=== PATIENT | female | born 1985 | race Hispanic/Latino ===

== ENCOUNTER 2017-02-18 20:28 | Emergency (ER) | payer MEDICAID ==
[2017-02-18 21:24] VITALS: BP 128/77
--- NOTE | 2017-02-18 22:59 | Cat Scan Report ---
FINAL REPORT EXAM: CT HEAD/BRAIN WO CON HISTORY: headache x 1 week TECHNIQUE: CT head without contrast PRIORS: None. FINDINGS: No acute intra-axial or extra-axial hemorrhage is identified. There is no evidence of midline shift or mass effect. The ventricles and sulci are within normal limits. Mathew-white matter differentiation is intact. No acute parenchymal abnormalities seen. Bony calvarium is grossly intact. Visualized portions of the mastoids and paranasal sinuses are unremarkable. IMPRESSION: Negative CT head
== END 2017-02-18 21:30 | disposition left against medical advice (07) ==
LOC: ED 20:28
DX: R50.9 Fever, unspecified (principal); R51 Headache; Z53.21 Procedure and treatment not carried out due to patient leaving prior to being seen by health care provider
CPT/HCPCS: 70450

== ENCOUNTER 2017-05-23 10:30 | Inpatient (IN) | payer MEDICAID ==
--- NOTE | 2017-05-23 11:48 | Anesthesia Consultation ---
Anesthesia Consult and Med Hx Date of service: 05/25/17 - Airway Anesthetic Teeth Evaluation: Dentures ROM Head & Neck: Adequate Mental/Hyoid Distance: Adequate Mallampati Class: Class I Intubation Access Assessment: Good - Pulmonary Exam CTA: Yes - Cardiac Exam Cardiac Exam: RRR - Pre-Operative Health Status ASA Pre-Surgery Classification: ASA2 Proposed Anesthetic Plan: General Nerve Block: TAP block - Pulmonary Hx Smoking: Yes Hx Asthma: Yes (as a child, uses inhaler when gets resp infections) COPD: No Hx Pneumonia: No - Cardiovascular System Hx Hypertension: No - Central Nervous System Hx Seizures: No Hx Back Pain: Yes (Sciatica) Hx Psychiatric Problems: Yes (PTSD, anxiety,depression) - Endocrine Hx Renal Disease: No Hx End Stage Renal Disease: No Hx Hypothyroidism: No Hx Hyperthyroidism: No - Hematic Hx Anemia: Yes Hx Sickle Cell Disease: No - Other Systems Hx Alcohol Use: No Hx Cancer: No Hx Obesity: Yes - Additional Comments Anesthesia Medical History Comments: migraines. h/o PONV
[2017-05-23 16:45] LABS: Basophils % (Auto) 0.5 % (0.0-1.8); Eosinophils # (Auto) 0.2 K/mm3 (0.0-0.4); Hematocrit 42.6 % (30.3-42.9); Hemoglobin 14.3 gm/dl (10.1-14.3); Lymphocytes # (Auto) 1.8 K/mm3 (1.2-5.4); Lymphocytes % (Auto) 20.9 % (13.4-35.0); Mean Corpuscular HGB Conc 34 % (30-34); Mean Corpuscular Hemoglobin 30 pg (28-32); Mean Corpuscular Volume 88 fl (79-97); Monocytes # (Auto) 0.7 K/mm3 (0.0-0.8); Monocytes % (Auto) 8.2 % (0.0-7.3); Platelet Count 273 K/mm3 (140-440); Red Blood Count 4.83 M/mm3 (3.65-5.03); Red Cell Distribution Width 13.8 % (13.2-15.2)
--- NOTE | 2017-05-24 20:54 | History and Physical Report ---
History of Present Illness Date of examination: 05/23/17 Chief complaint: Pelvic Pain, Dyspareunia, Dysfunctional Uterine Bleeding History of present illness: The patient is a 31 year old female presents for definitive management of chronic pelvic pain, dyspareunia, and dysfunctional uterine bleeding after failed medical management. Past History Past Medical History: asthma, GERD, other (anxiety, depression) Past Surgical History: cholecystectomy, [employer]/uterine surgery (tubal ligation ), section (x 4: 2004, 2011, 2012, 2015) Family/Genetic History: heart disease, hypertension, cancer Social history: - Obstetrical History : 5 Medications and Allergies Allergies Allergy/AdvReac Type Severity Reaction Status Date / Time sulfamethoxazole Allergy Rash Verified 05/20/17 15:35 [From Bactrim] trimethoprim [From Bactrim] Allergy Rash Verified 05/20/17 15:35 Home Medications Medication Instructions Recorded Confirmed Last Taken Type Albuterol Sulfate [Ventolin Hfa] 2 puff IH PRN PRN 05/20/17 05/20/17 Unknown History Review of Systems All systems: negative - Vital Signs Vital signs: Vital Signs Temp Pulse Resp BP 98.2 F 80 18 104/78 05/23/17 11:20 05/23/17 11:20 05/23/17 11:20 05/23/17 11:20 Temp Pulse Resp BP Pulse Ox 98.2 F 80 18 104/78 05/23/17 11:20 05/23/17 11:20 05/23/17 11:20 05/23/17 11:20 - Physical Exam Breasts: Positive: deferred Cardiovascular: Regular rate Lungs: Positive: Clear to auscultation Abdomen: Positive: soft (obese) Uterus: Positive: normal size Extremities: Positive: normal Results Result Diagrams: 05/23/17 11:25 All other labs normal. Assessment and Plan A: Chronic Pelvic Pain Dyspareunia Dysfunctional Uterine Bleeding Previous x 4 GERD Asthma Anxiety Depression P: Proceed with total abdominal hysterectomy, bilateral salpingectomy, possible oophorectomy and other indicated procedures.
[2017-05-25] MEDS ORDERED: ANCEF/STERILE WATER 2 GM/20 ML 2 GM/20 ML SYRINGE IV SCH (05:00)
[2017-05-25] MEDS ORDERED: LACTATED RINGERS 1,000 ML IV SCH (05:00)
[2017-05-25] MEDS ORDERED: NACL BACTERIOSTATIC INFILTRATI ONE (06:16)
[2017-05-25] MEDS ORDERED: SUBLIMAZE IV NR (07:02)
[2017-05-25] MEDS ORDERED: XYLOCAINE MPF 2% ONE (07:07)
[2017-05-25] MEDS ORDERED: SUBLIMAZE ONE (07:08)
[2017-05-25] MEDS ORDERED: DIPRIVAN 10 MG/ML IV ONE (07:08)
[2017-05-25] MEDS ORDERED: METHYLENE BLUE ONE (07:15)
[2017-05-25] MEDS ORDERED: XYLOCAINE 1% 20 mL INFILTRATI NR (07:15)
[2017-05-25] MEDS ORDERED: ZEMURON IV ONE ×2 (07:16→09:15)
[2017-05-25] MEDS ORDERED: ZOFRAN ONE (07:16)
[2017-05-25 07:26] LABS: Alanine Aminotransferase 17 units/L (7-56); Albumin 3.7 g/dL (3.9-5); BUN/Creatinine Ratio 26; Blood Urea Nitrogen 13 mg/dL (7-17); Calcium 8.4 mg/dL (8.4-10.2); Hemolysis Index 8
[2017-05-25] MEDS ORDERED: ACD-A 500 ML IV ONE (07:27)
--- NOTE | 2017-05-25 07:54 | Anesthesia Day of Surgery ---
Anesthesia Day of Surgery - Day of Surgery Patient Examined: Yes Patient H&P Reviewed: Yes Patient is NPO: Yes
[2017-05-25] MEDS ORDERED: MARCAINE 0.5% INFILTRATI NR (08:00)
[2017-05-25] MEDS ORDERED: VERSED IV NR (08:00)
[2017-05-25] MEDS ORDERED: NACL P/F VIAL (10 ML) INFILTRATI NR (08:00)
[2017-05-25] MEDS ORDERED: LACTATED RINGERS 1,000 ML ONE (08:20)
[2017-05-25] MEDS ORDERED: ZOFRAN IV PRN ×2 (08:30→11:53)
[2017-05-25] MEDS ORDERED: DECADRON ONE (09:15)
[2017-05-25] MEDS ORDERED: NACL 0.9% IR ONE (10:01)
[2017-05-25] MEDS ORDERED: ROBINUL ONE (10:05)
[2017-05-25] MEDS ORDERED: NEOSTIGMINE ONE (10:05)
--- NOTE | 2017-05-25 10:34 | Operative Report ---
Operative Report Operative Report: Preoperative diagnosis: 1) Pelvic Pain 2) Dyspareunia 3) Dysfunctional Uterine Bleeding 4) Previous x 4 Postoperative diagnosis: Same Procedure: Total Abdominal Hysterectomy, Bilateral Salpingectomy Surgeon: Kat Childress MD Test Desk Operator: Sharda Swan MD Anesthesia:GETA Findings: 1) Small anteverted mobile uterus 2) Normal appearing ovaries and fallopian tubes. Previous bilateral tubal ligation 3) Bladder densely adherent to the cervix EBL: 200 mL IVF: 1700 mL Urine output: 150 mL, clear at the end of the procedure Drains: Hughes to gravity Specimen: Uterus, cervix, bilateral fallopian tubes to pathology Complications: None. Counts correct x 2. Disposition: Stable to PACU Indication for procedure: Pt is a 31 year old female presents for definitive management of chronic pelvic pain, dyspareunia, and dysfunctional uterine bleeding after failed medical management. Operation in detail: After the risks, benefits, alternatives and complications were explained to the patient she gave informed consent for the procedure. She was subsequently taken to the operating room with her IV noted to be running well and placed in the dorsal supine position. SCDs were noted to be in place and functioning. General endotracheal anesthesia was induced without difficulty. She was then placed in the dorsal supine position and prepped and draped in a normal sterile fashion. A hughes catheter was inserted and the bladder was emptied. A timeout was performed. A Pfannenstiel skin incision was made with the knife and carried down to the fascia with the Bovie. The fascia was then incised in the midline with the Bovie , and the fascial incision was extended with the Bovie. The anterior edge was then grasped with two Kochers, tented up and dissected off the rectus muscles. The posterior edge was then grasped with two Kochers, tented up, and dissected off the rectus muscles. The rectus muscles were then blunty. The peritoneum was entered sharply between two Ladi clamps. The peritoneal incision was then stretched with good visualization of the bladder. Intraabdominal survery was completed and noted as above. An O'Germán-O'Vega was placed and the bowel was packed away with moist tagged laps. The uterus was delivered through the incision and grasped at each cornua with Ladi clamps. The right round ligament was clamped with a Atul, suture ligated with 0- Vicryl and transected with the Bovie. The anterior leaf of the broad ligament was dissected to the midline of the vesico-uterine peritoneum. An avascular window was created, and the right utero-ovarian ligament and fallopian tube were clamped, cut and suture ligated with 0-Vicryl. The left round ligament was grasped with a Atul, suture ligated and transected. The fallopian tube and utero-ovarian ligaments were also doubly clamped, cut and suture ligated with 0 Vicryl. The anterior leaf of the broad ligament on the left side was also dissected to the midline of the vesico-uterine peritoneum. A moist sponge stick and a combination of sharp dissection and Bovie cautery was used to move the bladder inferiorly off of the cervix. Next, both uterine arteries were doubly clamped, cut and suture ligated with 0-Vicryl. The cardinal ligaments and utero- sacral ligaments were then sequentially clamped, cut and suture ligated with 0- Vicryl. Sharply curved Zeppelin clamps were then placed at the angles of the vagina. The uterus and cervix were then excised and sent to pathology. Rico stitches of 0 Vicryl were then used to reapproximate the vaginal angles. The remainder of the vaginal cuff was then reapproximated with figure of eights of 0 -Vicryl. Hemostasis was noted. The fallopian tubes were then clamped, cut and suture ligated with 0 Vicryl bilaterally and sent to pathology. Hemostasis was noted. The abdomen was then irrigated and all pedicles were noted to be hemostatic. Elias AH was then sprinkled over the pedicles. Next, all retractors, laps and instruments were removed from the peritoneal cavity. The peritoneum and rectus muscles were reapproximated with 0-Vicryl in a running fashion. The fascia were reapproximated with 0 Vicryl in a running fashion. The subcutaneous tissue is reapproximated with 2-0 Vicryl in a running fashion. The skin was reapproximated with 4-0 Vicryl in a subcuticular fashion. The incision was then covered with steristrips and a pressure dressing. The procedure was then ended. The pt was then extubated without difficulty and taken to the PACU in stable condition. All instrument, lap and needle counts were correct x 2.
--- NOTE | 2017-05-25 10:34 | Post Operative Note ---
Pre-op diagnosis: 1) Pelvic Pain 2) Dyspareunia 3) Dysfunctional Uterine Bleeding Post-op diagnosis: same Findings: 1) Small anteverted mobile uterus 2) Normal appearing ovaries and fallopian tubes. Previous bilateral tubal ligation 3) Bladder densely adherent to the cervix Procedure: Total abdominal hysterectomy, bilateral salpingectomy Anesthesia: GETA Surgeon: DEBBIE GIRON Area Field Manager: PHIL TONG Estimated blood loss: other (200 mL) Pathology: list (uterus, cervix, fallopian tubes) Specimen disposition: to lab Condition: stable Disposition: PACU
[2017-05-25] MEDS: DILAUDID IV PRN ×4 (10:40→11:10)
[2017-05-25] MEDS: VERSED IV PRN ×2 (10:47→11:00)
[2017-05-25] MEDS ORDERED: MORPHINE PCA 30MG/30ML IV ONE (10:54)
--- NOTE | 2017-05-25 11:14 | Post Anesthesia Evaluation ---
- Post Anesthesia Evaluation Patient Participated: Yes Airway Patent: Yes Stable Respiratory Function: Yes Temp > 96.8F: Yes Pain Manageable: Yes Adequeate Hydration: Yes Anesthesia Complications: No
[2017-05-25] MEDS ORDERED: DEMEROL IV PRN (11:30)
[2017-05-25] MEDS ORDERED: MORPHINE PCA 30MG/30ML IV SCH (11:53)
[2017-05-25] MEDS ORDERED: ANCEF/NS 1 GM/50 ML 1 GM/50 ML BAG IV SCH (11:53)
[2017-05-25] MEDS ORDERED: NARCAN 0.4 MG/1 ML IV PRN ×3 (11:53→18:13)
[2017-05-25] MEDS ORDERED: MORPHINE IV PRN (11:53)
[2017-05-25] MEDS ORDERED: D5W/0.45% NACL/KCL 20 MEQ 20 MEQ/1,000 ML BAG IV SCH (11:53)
[2017-05-25] MEDS: TORADOL IV SCH ×2 (12:26→18:03)
[2017-05-25] MEDS ORDERED: DILAUDID PCA 6MG/30ML IV SCH (19:00)
[2017-05-25] MEDS ORDERED: DILAUDID IV ONE (19:00)
[2017-05-25] MEDS: ZOFRAN IV PRN (19:01)
[2017-05-25] MEDS: XANAX PO PRN (19:05)
[2017-05-25] MEDS: ceFAZolin 1 GM in NACL 0.9% 20 ML IV SCH (21:45)
[2017-05-25] MEDS: COLACE PO SCH (22:01)
[2017-05-26] MEDS: TORADOL IV SCH ×4 (00:37→18:07)
[2017-05-26] MEDS: ceFAZolin 1 GM in NACL 0.9% 20 ML IV SCH (05:43)
[2017-05-26 06:44] LABS: Hematocrit 36.1 % (30.3-42.9); Hemoglobin 12.2 gm/dl (10.1-14.3)
[2017-05-26 07:00] LABS: BUN/Creatinine Ratio 12; Blood Urea Nitrogen 7 mg/dL (7-17); Calcium 8.4 mg/dL (8.4-10.2); Hemolysis Index 3
[2017-05-26] MEDS ORDERED: DILAUDID PO PRN (08:43)
--- NOTE | 2017-05-26 08:47 | Progress Note ---
Assessment and Plan A: POD#1 s/p PRIYANKA/Bilateral salpingectomy P: Routine post op care. Discontinue HOP SEPARATOR. PO Dilaudid for pain. Subjective - Subjective Date of service: 05/26/17 Principal diagnosis: s/p PRIYANKA/Bilateral salpingectomy Interval history: Poor pain control initially. Pt crying and anxious this morning. Passing small amount of flatus. Voiding. Patient reports: voiding normally, flatus, pain poorly controlled, no bowel movement, no ambulating normally (SCDs in place ) Objective - Vital Signs Latest vital signs: Vital Signs Temp Pulse Resp BP BP Pulse Ox 05/26/17 06:48 20 05/26/17 05:02 98.4 F 77 20 98/61 99 05/26/17 03:28 20 05/26/17 01:28 20 05/26/17 00:39 20 100 05/26/17 00:37 20 05/25/17 23:28 20 05/25/17 23:18 98.7 F 65 20 117/77 96 05/25/17 21:28 20 05/25/17 20:17 97.9 F 72 20 106/73 97 05/25/17 17:08 98 H 100 05/25/17 17:00 97.4 F L 101 H 18 140/83 99 05/25/17 12:55 20 05/25/17 12:45 97.5 F L 69 20 148/74 100 05/25/17 12:26 14 05/25/17 12:25 97.7 F 70 16 130/80 99 05/25/17 12:10 69 14 135/78 98 05/25/17 11:55 69 15 139/84 97 05/25/17 11:40 68 15 132/76 98 05/25/17 11:30 14 05/25/17 11:25 97.7 F 69 14 133/77 99 05/25/17 11:20 14 05/25/17 11:10 72 14 133/97 100 05/25/17 11:00 14 05/25/17 10:55 70 14 136/77 100 05/25/17 10:50 14 05/25/17 10:40 69 14 129/82 100 05/25/17 10:35 69 16 126/70 100 05/25/17 10:30 67 17 105/61 100 05/25/17 10:24 97.8 F 65 16 111/48 100 Intake and Output 05/25/17 05/26/17 05/26/17 22:59 06:59 14:59 Intake Total 480 700 Output Total 1200 1350 Balance -720 -650 Intake: Oral 480 700 Output: Urine 1200 1350 Indwelling Catheter 1200 1350 Other: Total, Intake Amount 480 700 Total, Output Amount 200 1350 Voiding Method Indwelling Catheter # Voids Indwelling Catheter 1,000 # Bowel Movements 0 Weight 89.358 kg - Exam Breasts: Present: deferred Cardiovascular: Present: Regular rate Lungs: Present: Clear to auscultation Abdomen: Present: soft, abnormal bowel sounds (hypoactive ) Extremities: Present: normal (SCDs in place ) Incision: Present: dressed - Labs Labs: Abnormal lab results 05/26/17 Range/Units 05:51 Creatinine 0.6 L (0.7-1.2) mg/dL Glucose 125 H (65-100) mg/dL
[2017-05-26] MEDS ORDERED: DILAUDID IV PRN (08:55)
[2017-05-26] MEDS: PROTONIX IV SCH (10:19)
[2017-05-26] MEDS: COLACE PO SCH ×2 (10:21→21:56)
[2017-05-26] MEDS: MILK OF MAGNESIA PO SCH ×3 (11:00→20:35)
[2017-05-26] MEDS: PERCOCET 5/325 PO PRN ×4 (11:36→23:47)
[2017-05-26] MEDS: XANAX PO PRN ×2 (12:40→20:46)
[2017-05-27] MEDS: PERCOCET 5/325 PO PRN ×4 (03:47→20:55)
[2017-05-27] MEDS: MILK OF MAGNESIA PO SCH ×5 (03:49→23:00)
[2017-05-27] MEDS: TORADOL IV SCH ×3 (06:33→21:01)
[2017-05-27] MEDS: ZOFRAN IV PRN ×2 (07:46→21:03)
--- NOTE | 2017-05-27 09:38 | Progress Note ---
Assessment and Plan A: POD#2 s/p PRIYANKA/Bilateral salpingectomy P: Routine post op care. Continue bowel regimen. Anticipate discharge tomorrow. Subjective - Subjective Date of service: 05/27/17 Principal diagnosis: s/p PRIYANKA/Bilateral salpingectomy Interval history: Pt reports eating too much last night and feeling nauseated afterwards. She has some nausea today but no emesis. She is upset because some of her family that was supposed to help her after this surgery are unable to come. Patient reports: appetite normal, voiding normally, pain well controlled, flatus , ambulating normally, nauseated, no bowel movement Objective - Vital Signs Latest vital signs: Vital Signs Temp Pulse Resp BP BP Pulse Ox 05/27/17 04:47 18 05/27/17 04:10 98.2 F 84 20 97/66 05/27/17 03:47 20 05/27/17 00:47 18 05/27/17 00:00 98.2 F 84 20 148/78 05/26/17 23:47 20 05/26/17 20:35 20 05/26/17 20:10 98.3 F 71 18 116/72 05/26/17 15:42 98.4 F 75 20 101/54 97 05/26/17 10:20 16 Intake and Output 05/26/17 05/27/17 05/27/17 22:59 06:59 14:59 Intake Total 960 240 Output Total 800 Balance 160 240 Intake: Oral 960 240 Output: Urine 800 Void 600 Other: Total, Intake Amount 240 240 Total, Output Amount 200 Voiding Method Toilet # Voids Void 1 1 - Exam Breasts: Present: deferred Cardiovascular: Present: Regular rate Lungs: Present: Clear to auscultation Abdomen: Present: soft Extremities: Present: normal Incision: Present: dressed
[2017-05-27] MEDS: COLACE PO SCH (10:05)
[2017-05-27] MEDS: PROTONIX IV SCH (10:05)
[2017-05-27] MEDS: XANAX PO PRN (15:34)
[2017-05-27] MEDS ORDERED: TUCKS PAD TP PRN (17:43)
[2017-05-28] MEDS: PERCOCET 5/325 PO PRN ×2 (05:30→12:49)
[2017-05-28] MEDS: COLACE PO SCH ×2 (07:31→10:22)
[2017-05-28] MEDS: MILK OF MAGNESIA PO SCH (07:31)
[2017-05-28] MEDS: TORADOL IV SCH (10:21)
[2017-05-28] MEDS: PROTONIX IV SCH (10:22)
--- NOTE | 2017-05-28 12:12 | Progress Note ---
Assessment and Plan - Patient Problems (1) Status post abdominal hysterectomy Current Visit: Yes Status: Acute Plan to address problem: Patient is currently doing well Discharge home Subjective - Subjective Date of service: 05/28/17 Principal diagnosis: s/p PRIYANKA/Bilateral salpingectomy Interval history: patient without any significant complaints. Tolerating regular diet without complication. Pain is better controlled Patient reports: appetite normal, voiding normally, pain well controlled Objective - Vital Signs Latest vital signs: Vital Signs Temp Pulse Resp BP Pulse Ox 05/28/17 08:18 98.4 F 76 18 124/74 96 05/28/17 05:01 97.9 F 74 20 102/70 99 05/28/17 01:13 97.7 F 73 20 105/57 100 05/27/17 21:28 98.2 F 86 20 121/68 97 05/27/17 16:13 97.9 F 77 18 110/71 99 05/27/17 12:24 97.5 F L 86 20 108/69 96 Intake and Output 05/27/17 05/28/17 05/28/17 22:59 06:59 14:59 Intake Total 240 120 Balance 240 120 Intake: Oral 120 120 Intake, Free Water 120 Other: Total, Intake Amount 120 120 # Voids Void 1 1 # Bowel Movements 1 - Exam Abdomen: Present: normal appearance Incision: Present: normal
--- NOTE | 2017-05-28 12:14 | Discharge Summary ---
Providers - Providers Date of Admission: 05/25/17 05:46 Date of discharge: 05/28/17 Attending physician: DEBBIE CHILDRESS Primary care physician: MIKKI LY Hospitalization Reason for admission: other (chronic pelvic pain) Procedure: other (total abdominal hysterectomy) Incision: normal Discharge diagnosis: other (chronic pelvic pain) Hospital course: Patient was admitted the day of surgery and underwent a total abdominal hysterectomy. Please see operative note for details of surgery. Postoperative course was uneventful. Condition at discharge: Good Disposition: DC-[id number] TO HOME OR SELFCARE - Discharge Diagnoses (1) Status post abdominal hysterectomy Status: Acute Plan - Discharge Medications Prescriptions: ALPRAZolam [Xanax] 1 mg PO Q8H PRN #20 tablet PRN Reason: Anxiety Docusate Sodium [Colace] 100 mg PO BID PRN #60 capsule PRN Reason: Constipation Ibuprofen [Motrin] 800 mg PO Q8HR PRN #30 tablet PRN Reason: Pain Omeprazole 20 mg PO DAILY #30 tablet. oxyCODONE /ACETAMINOPHEN [Percocet 5/325] 1 tab PO Q6HR PRN #40 tablet PRN Reason: Pain - Provider Discharge Summary Activity: no sex for 6 weeks, no heavy lifting 4 weeks, no strenuous exercise Diet: routine Instructions: routine Additional instructions: [] Smoking cessation referral if applicable(refer to patient education folder for contact #) [] Refer to [facility] Booklet Call your doctor immediately for: * Fever > 100.5 * Heavy vaginal bleeding ( >1 pad per hour) * Severe persistent headache * Shortness of breath * Reddened, hot, painful area to leg or breast * Drainage or odor from incision. * Keep incision clean and dry at all times and follow doctor's instructions regarding bathing/showering Scheduled follow-up postoperative appointment with Dr. Childress in 2 weeks - Follow up plan
[2017-05-28 12:47] VITALS: BP 121/80
[2017-05-29] MEDS ORDERED: PROTONIX PO SCH (10:00)
== END 2017-05-28 13:35 | disposition home or self-care (01) | DRG 743 ==
LOC: 3A 05-25 05:46 → OB 05-25 11:03
PROVIDERS: ADMIT Obstetrics & Gynecology; ATTEND Obstetrics & Gynecology
PROC: 0UT90ZZ Resection of Uterus, Open Approach (ICD-10-PCS; principal; 2017-05-25)
PROC: 0UB70ZZ Excision of Bilateral Fallopian Tubes, Open Approach (ICD-10-PCS; 2017-05-25)
DX: N93.8 Other specified abnormal uterine and vaginal bleeding (principal); J45.909 Unspecified asthma, uncomplicated; K21.9 Gastro-esophageal reflux disease without esophagitis; F41.9 Anxiety disorder, unspecified; N94.10 Unspecified dyspareunia; F32.9 Major depressive disorder, single episode, unspecified; E66.9 Obesity, unspecified; Z90.49 Acquired absence of other specified parts of digestive tract; Z98.51 Tubal ligation status; Z88.2 Allergy status to sulfonamides; Z68.32 Body mass index [BMI] 32.0-32.9, adult
CPT/HCPCS: 36415; 64450; 80048; 80053; 84703; 85014; 85018; 85025; 86850; 86900; 86901; 88302; 88307; C9113; J0690; J1100; J1170; J1885; J2250; J2270; J2405; J2704; J2710; J3010; J7120; Q9968

== ENCOUNTER 2018-08-07 15:03 | Emergency (ER) | payer MEDICAID ==
--- NOTE | 2018-08-07 15:46 | Emergency Department Report ---
Blank Doc - Documentation Documentation: This is a 33-year-old female that presents with dizziness and headache. Stated had a near syncope episode. Also has fatigue. This initial assessment/diagnostic orders/clinical plan/treatment(s) is/are subject to change based on patient's health status, clinical progression and re- assessment by fellow clinical providers in the ED. Further treatment and workup at subsequent clinical providers discretion. Patient/guardians urged not to elope from the ED as their condition may be serious if not clinically assessed and managed. Initial orders include: 1- Patient sent to [facility] for further evaluation and treatment 2- labs 3- CT head 4- UA
[2018-08-07 15:48] VITALS: BP 137/82
[2018-08-07 16:12] LABS: Basophils # (Auto) 0.1 K/mm3 (0.0-0.1); Basophils % (Auto) 1.1 % (0.0-1.8); Eosinophils # (Auto) 0.2 K/mm3 (0.0-0.4); Eosinophils % (Auto) 1.9 % (0.0-4.3); Hematocrit 43.2 % (30.3-42.9); Lymphocytes # (Auto) 2.2 K/mm3 (1.2-5.4); Lymphocytes % (Auto) 20.8 % (13.4-35.0); Mean Corpuscular HGB Conc 35 % (30-34); Mean Corpuscular Volume 89 fl (79-97); Monocytes # (Auto) 0.7 K/mm3 (0.0-0.8); Monocytes % (Auto) 6.8 % (0.0-7.3); Platelet Count 277 K/mm3 (140-440); Red Blood Count 4.88 M/mm3 (3.65-5.03); Red Cell Distribution Width 13.3 % (13.2-15.2)
[2018-08-07 16:28] LABS: Amorphous Crystals,Urine Few; Bilirubin,Urine NEG (Negative); Blood,Urine NEG (Negative); Color,Urine Yellow (Yellow); Mucus,Urine 3+ /HPF; Protein,Urine <15 mg/dL mg/dL (Negative); WBC,Urine < 1.0 /HPF (0.0-6.0)
[2018-08-07 17:10] LABS: Alanine Aminotransferase 27 units/L (7-56); Albumin 4.4 g/dL (3.9-5); BUN/Creatinine Ratio 20; Blood Urea Nitrogen 16 mg/dL (7-17); Calcium 9.2 mg/dL (8.4-10.2); Hemolysis Index 16
[2018-08-07] MEDS ORDERED: TYLENOL PO ONE (19:20)
[2018-08-07] MEDS ORDERED: REGLAN PO ONE (19:20)
[2018-08-07] MEDS ORDERED: BENADRYL PO ONE (19:20)
[2018-08-07] MEDS ORDERED: DECADRON IM ONE (19:20)
--- NOTE | 2018-08-07 19:58 | Emergency Department Report ---
ED General Adult HPI - General Chief complaint: Dizziness Stated complaint: DIZZY/PASSED OUT Time Seen by Provider: 08/07/18 15:45 Source: patient Mode of arrival: Ambulatory Limitations: No Limitations - History of Present Illness Initial comments: This is a 33-year-old female that presents with dizziness and headache. Stated had a near syncope episode. Also has fatigue. pt has hx of migraine headache which preceded this event, right frontal headache 7/10 sharp this is usual location and intensity of other headache, there is no fever no chillls no n/v no neck pain, no ear or throat pain , symptoms are improved at this time , pt is ambulatory to baseline per patient there is no dizziness no cp no n/v. no photophobia Onset/Timin -: days(s) Location: head Radiation: non-radiation Severity scale (0 -10): 4 Quality: sharp Consistency: constant Improves with: rest Worsens with: movement Associated Symptoms: headaches Treatments Prior to Arrival: none - Related Data Home Medications Medication Instructions Recorded Confirmed Last Taken Albuterol Sulfate [Ventolin Hfa] 2 puff IH PRN PRN 05/20/17 05/20/17 Unknown Previous Rx's Medication Instructions Recorded Last Taken Type ALPRAZolam [Xanax] 1 mg PO Q8H PRN #20 tablet 05/27/17 Unknown Rx Docusate Sodium [Colace] 100 mg PO BID PRN #60 capsule 05/27/17 Unknown Rx Ibuprofen [Motrin] 800 mg PO Q8HR PRN #30 tablet 05/27/17 Unknown Rx Omeprazole 20 mg PO DAILY #30 tablet. 05/27/17 Unknown Rx oxyCODONE /ACETAMINOPHEN [Percocet 1 tab PO Q6HR PRN #40 tablet 05/27/17 Unknown Rx 5/325] Acetaminophen [Acetaminophen TAB] 1,000 mg PO Q6HR PRN #30 tablet 08/08/18 Unknown Rx Metoclopramide [Reglan] 10 mg PO Q6H PRN #30 tablet 08/08/18 Unknown Rx diphenhydrAMINE [Benadryl CAP] 25 mg PO Q6HR PRN #30 capsule 08/08/18 Unknown Rx Allergies Allergy/AdvReac Type Severity Reaction Status Date / Time sulfamethoxazole Allergy Rash Verified 05/20/17 15:35 [From Bactrim] trimethoprim [From Bactrim] Allergy Rash Verified 05/20/17 15:35 ED Review of Systems ROS: Stated complaint: DIZZY/PASSED OUT Other details as noted in HPI Constitutional: malaise. denies: chills, fever Eyes: denies: eye pain, eye discharge, vision change ENT: denies: ear pain, throat pain Respiratory: denies: cough, shortness of breath, wheezing Cardiovascular: denies: chest pain, palpitations Endocrine: no symptoms reported Gastrointestinal: denies: abdominal pain, nausea, vomiting, diarrhea Genitourinary: as per HPI Musculoskeletal: denies: back pain, joint swelling, arthralgia Skin: denies: rash, lesions Neurological: headache. denies: weakness, numbness, paresthesias, confusion, abnormal gait, vertigo Psychiatric: denies: anxiety, depression Hematological/Lymphatic: denies: easy bleeding, easy bruising ED Past Medical Hx - Past Medical History Previous Medical History?: Yes Hx Hypertension: No Hx Congestive Heart Failure: No Hx Diabetes: No Hx Deep Vein Thrombosis: No Hx Renal Disease: No Hx Sickle Cell Disease: No Hx Headaches / Migraines: Yes (migraines) Hx Seizures: No Hx Asthma: Yes Hx COPD: No Hx HIV: No - Surgical History Hx Cholecystectomy: Yes Additional Surgical History: x 3. tubal ligation - Social History Smoking Status: Current Every Day Smoker Substance Use Type: None - Medications Home Medications: Home Medications Medication Instructions Recorded Confirmed Last Taken Type Albuterol Sulfate [Ventolin Hfa] 2 puff IH PRN PRN 05/20/17 05/20/17 Unknown History ALPRAZolam [Xanax] 1 mg PO Q8H PRN #20 tablet 05/27/17 Unknown Rx Docusate Sodium [Colace] 100 mg PO BID PRN #60 capsule 05/27/17 Unknown Rx Ibuprofen [Motrin] 800 mg PO Q8HR PRN #30 tablet 05/27/17 Unknown Rx Omeprazole 20 mg PO DAILY #30 tablet. 05/27/17 Unknown Rx oxyCODONE /ACETAMINOPHEN [Percocet 1 tab PO Q6HR PRN #40 tablet 05/27/17 Unknown Rx 5/325] Acetaminophen [Acetaminophen TAB] 1,000 mg PO Q6HR PRN #30 tablet 08/08/18 Unknown Rx Metoclopramide [Reglan] 10 mg PO Q6H PRN #30 tablet 08/08/18 Unknown Rx diphenhydrAMINE [Benadryl CAP] 25 mg PO Q6HR PRN #30 capsule 08/08/18 Unknown Rx ED Physical Exam - General Limitations: No Limitations General appearance: alert, in no apparent distress - Head Head exam: Present: atraumatic, normocephalic - Eye Eye exam: Present: normal appearance, EOMI. Absent: conjunctival injection, nystagmus Pupils: Present: normal accommodation - ENT ENT exam: Present: normal orophraynx, mucous membranes moist, TM's normal bilaterally, normal external ear exam - Neck Neck exam: Present: normal inspection, full ROM. Absent: tenderness, meningismus, lymphadenopathy, thyromegaly - Expanded Neck Exam Expanded Neck exam: Absent: midline deformity, anterior neck swelling, thyroid mass, carotid bruit, tracheal deviation - Respiratory Respiratory exam: Present: normal lung sounds bilaterally. Absent: respiratory distress, wheezes, stridor, chest wall tenderness - Cardiovascular Cardiovascular Exam: Present: regular rate, normal rhythm, normal heart sounds. Absent: systolic murmur, diastolic murmur, rubs, gallop - GI/Abdominal GI/Abdominal exam: Present: soft, normal bowel sounds. Absent: distended, tenderness, bruit, hernia - Rectal Rectal exam: Present: deferred - Extremities Exam Extremities exam: Present: normal inspection, full ROM, normal capillary refill. Absent: tenderness, pedal edema, joint swelling, calf tenderness - Back Exam Back exam: Present: normal inspection, full ROM. Absent: tenderness, CVA tenderness (R), CVA tenderness (L), muscle spasm, paraspinal tenderness, rash noted - Neurological Exam Neurological exam: Present: alert, oriented X3, CN II-XII intact, normal gait, reflexes normal. Absent: motor sensory deficit - Expanded Neurological Exam Expanded Patient oriented to: Present: person, place, time Speech: Present: fluid speech Cranial nerves: EOM's Intact: Normal, Gag Reflex: Normal, Tongue Deviation: Normal, Nystagmus: Normal, Facial Sensation: Normal Cerebellar function: Finger to Nose: Normal, Heel to [place]: Normal, Romberg: Normal Upper motor neuron: Haroon Neglect: Normal, Pronator Drift: Normal, Babinski Sign: Normal, Sensory Extinction: Normal Motor strength exam: RUE: 5, LUE: 5, RLE: 5, LLE: 5 DTR: bicep (R): 2+, bicep (L): 2+, ankle (R): 2+, ankle (L): 2+ Best Eye Response ([place]): (4) open spontaneously Best Motor Response ([place]): (6) obeys commands Best Verbal Response ([place]): (5) oriented [place] Total: 15 - Psychiatric Psychiatric exam: Present: normal affect, normal mood - Skin Skin exam: Present: warm, dry, intact, normal color. Absent: rash ED Course Vital Signs 08/07/18 15:44 Temperature 98.2 F Pulse Rate 80 Respiratory 18 Rate Blood Pressure 137/82 O2 Sat by Pulse 96 Oximetry ED Medical Decision Making - Lab Data Result diagrams: 08/07/18 15:49 08/07/18 15:49 Labs 08/07/18 08/07/18 08/07/18 15:49 15:49 15:49 WBC 10.7 RBC 4.88 Hgb 15.0 H Hct 43.2 H MCV 89 MCH 31 MCHC 35 H RDW 13.3 Plt Count 277 Lymph % (Auto) 20.8 Gregory % (Auto) 6.8 Eos % (Auto) 1.9 Baso % (Auto) 1.1 Lymph # 2.2 Gregory # 0.7 Eos # 0.2 Baso # 0.1 Seg Neutrophils % 69.4 Seg Neutrophils # 7.4 Sodium 140 Potassium 4.4 Chloride 105.0 Carbon Dioxide 20 L Anion Gap 19 BUN 16 Creatinine 0.8 Estimated GFR > 60 BUN/Creatinine Ratio 20 Glucose 105 H Calcium 9.2 Total Bilirubin 0.30 AST 18 ALT 27 Alkaline Phosphatase 73 Total Protein 7.7 Albumin 4.4 Albumin/Globulin Ratio 1.3 HCG, Qual Negative Urine Color Urine Turbidity Urine pH Ur Specific [place] Urine Protein Urine Glucose (UA) Urine Ketones Urine Blood Urine Nitrite Urine Bilirubin Urine Urobilinogen Ur Leukocyte Esterase Urine WBC (Auto) Urine RBC (Auto) U Epithel Cells (Auto) Amorphous Crystals Urine Mucus 08/07/18 Unknown WBC RBC Hgb Hct MCV MCH MCHC RDW Plt Count Lymph % (Auto) Gregory % (Auto) Eos % (Auto) Baso % (Auto) Lymph # Gregory # Eos # Baso # Seg Neutrophils % Seg Neutrophils # Sodium Potassium Chloride Carbon Dioxide Anion Gap BUN Creatinine Estimated GFR BUN/Creatinine Ratio Glucose Calcium Total Bilirubin AST ALT Alkaline Phosphatase Total Protein Albumin Albumin/Globulin Ratio HCG, Qual Urine Color Yellow Urine Turbidity Cloudy Urine pH 6.0 Ur Specific [place] 1.028 Urine Protein <15 mg/dl Urine Glucose (UA) Neg Urine Ketones Tr Urine Blood Neg Urine Nitrite Neg Urine Bilirubin Neg Urine Urobilinogen 2.0 Ur Leukocyte Esterase Neg Urine WBC (Auto) < 1.0 Urine RBC (Auto) 10.0 U Epithel Cells (Auto) 6.0 Amorphous Crystals Few Urine Mucus 3+ - EKG Data EKG shows normal: sinus rhythm, axis, intervals, QRS complexes, ST-T waves Rate: bradycardia - EKG Data Interpretation: normal EKG (ekg interp by ed attending NS Bradycardia hr 56, No ST Elevated NE ) - Radiology Data Radiology results: report reviewed, image reviewed Ordering Physician: GRETEL MATIAS NP Date of Service: 08/07/18 Procedure(s): CT head/brain wo con Accession Number(s): [id number] cc: GRETEL MATIAS NP CT HEAD WITHOUT CONTRAST INDICATION / CLINICAL INFORMATION: Lightheadedness/Dizziness. TECHNIQUE: All CT scans at this location are performed using CT dose reduction for ALARA by means of automated exposure control. COMPARISON: None available. FINDINGS: HEMORRHAGE: No evidence of intracranial hemorrhage or extra-axial fluid collection. EXTRA-AXIAL SPACES: Cortical sulci, sylvian fissures and basilar cisterns have an unremarkable appearance. VENTRICULAR SYSTEM: The ventricular system is of normal size and configuration. CEREBRAL PARENCHYMA: No areas of abnormal brain parenchymal attenuation are identified. There is no indication of recent infarction. MIDLINE SHIFT OR HERNIATION: There is no mass effect. CEREBELLUM / BRAINSTEM: Brainstem and cerebellum have an unremarkable appearance. INTRACRANIAL VESSELS:No abnormalities are identified on this noncontrast head CT. ORBITS: visualized portions of the orbits have an unremarkable appearance. SOFT TISSUES of HEAD: No significant abnormality. CALVARIUM: Evaluation of bone windows reveals no abnormalities. PARANASAL SINUSES / MASTOID AIR CELLS: Paranasal sinuses are free from sig nificant inflammatory mucosal disease. Mastoid air cells are normally pneumatized. IMPRESSION: 1. No acute intracranial abnormality. Signer Name: Shine Liu MD Signed: 08/07/2018 9:02 PM Workstation Name: [id number] Transcribed By: REF Dictated By: SANFORD CARLOS MD Electronically Authenticated By: SANFORD CARLOS MD Signed Date/Time: 08/07/182101 DD/ 58 TD/TT: - Medical Decision Making Headache is resolved to 02/16 CT scan is normal no bleed no mass no abnormality plan DC to home with Benadryl Reglan Tylenol when necessary headache patient referral to neurology and PCP patient will follow up with same in 2-3 days will return immediately should symptoms worsen patient DC'd home in stable condition at this time Critical care attestation.: If time is entered above; I have spent that time in minutes in the direct care of this critically ill patient, excluding procedure time. ED Disposition Clinical Impression: Dizziness Headache Qualifiers: Headache type: unspecified Headache chronicity pattern: acute headache Intractability: not intractable Qualified Code(s): R51 - Headache Disposition: DC-01 TO HOME OR SELFCARE Is pt being admited?: No Does the pt Need Aspirin: No Condition: Stable Instructions: Acute Headache (ED), Dizziness (ED) Prescriptions: Acetaminophen [Acetaminophen TAB] 1,000 mg PO Q6HR PRN #30 tablet PRN Reason: Headache diphenhydrAMINE [Benadryl CAP] 25 mg PO Q6HR PRN #30 capsule PRN Reason: Headache Metoclopramide [Reglan] 10 mg PO Q6H PRN #30 tablet PRN Reason: Headache Referrals: TORIN CHU MD [Referring] - 3-5 Days NIMA ERICKSON MD [Staff Physician] - 3-5 Days Forms: Work/School Release Form(ED) Time of Disposition: 00:31
--- NOTE | 2018-08-07 22:07 | Cat Scan Report ---
CT HEAD WITHOUT CONTRAST INDICATION / CLINICAL INFORMATION: Lightheadedness/Dizziness. TECHNIQUE: All CT scans at this location are performed using CT dose reduction for ALARA by means of automated e xposure control. COMPARISON: None available. FINDINGS: HEMORRHAGE: No evidence of intracranial hemorrhage or extra-axial fluid collection. EXTRA-AXIAL SPACES: Cortical sulci, sylvian fissures and basilar cisterns have an unremarkable appear ance. VENTRICULAR SYSTEM: The ventricular system is of normal size and configuration. CEREBRAL PARENCHYMA: No areas of abnormal brain parenchymal attenuation are identified. There is no i ndication of recent infarction. MIDLINE SHIFT OR HERNIATION: There is no mass effect. CEREBELLUM / BRAINSTEM: Brainstem and cerebellum have an unremarkable appearance. INTRACRANIAL VESSELS:No abnormalities are identified on this noncontrast head CT. ORBITS: visualized portions of the orbits have an unremarkable appearance. SOFT TISSUES of HEAD: No significant abnormality. CALVARIUM: Evaluation of bone windows reveals no abnormalities. PARANASAL SINUSES / MASTOID AIR CELLS: Paranasal sinuses are free from significant inflammatory mucos al disease. Mastoid air cells are normally pneumatized. IMPRESSION: 1. No acute intracranial abnormality. Signer Name: Shine Liu MD Signed: 08/07/2018 10:02 PM Workstation Name: [id number]
== END 2018-08-07 20:55 | disposition home or self-care (01) ==
LOC: ED 15:03
DX: R42 Dizziness and giddiness (principal); G43.909 Migraine, unspecified, not intractable, without status migrainosus; J45.909 Unspecified asthma, uncomplicated; R55 Syncope and collapse; F17.200 Nicotine dependence, unspecified, uncomplicated; Z88.2 Allergy status to sulfonamides; Z79.1 Long term (current) use of non-steroidal anti-inflammatories (NSAID); Z79.899 Other long term (current) drug therapy; Z90.49 Acquired absence of other specified parts of digestive tract; Z98.51 Tubal ligation status
CPT/HCPCS: 36415; 70450; 80053; 81001; 84703; 85025; 93005; 93010; 96372; 99284; J1100